=== PATIENT | female | born 1995 | race Caucasian/White ===

== ENCOUNTER 2017-06-19 16:50 | Emergency (ER) | payer MEDICAID, OTHER ==
[~2017-06-19] VITALS: Ht 160 cm; Wt 70.0 kg
[~2017-06-19 16:50] MED LIST: DOCO200C PO; ENOX40P SQ; HYDR-3534 PO; WALKER STANDARD; Z.0.WHEELSTD
[2017-06-19 16:53] VITALS: BP 130/76; PULSE 98; RESP 20; TEMP 98.9; O2SAT 97
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
[2017-06-19] MEDS ORDERED: IBUP-232 PO (19:06)
[2017-06-19] MEDS ORDERED: CYCL10TA PO (19:06)
--- NOTE | 2017-06-19 19:15 | RADRPT ---
EXAM DATE/TIME: 06/19/2017 19:01 [place] COMPARISON: FEMUR RIGHT (AP & LAT/2VWS), January 11, 2015, 9:25. INDICATIONS : Right femur pain, no recent injury. MEDICAL HISTORY : None. SURGICAL HISTORY : ORIF right femur. ENCOUNTER: Initial ACUITY: 2 weeks PAIN SCORE: 7/10 LOCATION: Right distal and proximal femur FINDINGS: 4 views of the right femur demonstrate no fracture or dislocation. There is a retrograde intramedulla ry kris within the femur with 2 distal and a proximal interlocking screw. There are no features to sug gest hardware failure or loosening. The kris traverses an old healed fracture of the mid femoral diaph ysis. There is cortical thickening at the site of prior fracture. No soft tissue abnormality is ident ified. CONCLUSION: No acute right femur abnormality is identified. There is an old healed fracture and a retrograde intr amedullary kris is present. Danis Mendieta MD on June 19, 2017 at 19:12 Board Certified Radiologist. This report was verified electronically.
--- NOTE | 2017-06-19 19:34 | PD ---
Physical Exam Narrative Patient was seen by my assistant paralegal and signed out to me. Data Data Last Documented VS Vital Signs Date Time Temp Pulse Resp B/P (MAP) Pulse Ox O2 Delivery O2 Flow Rate FiO2 06/19/17 16:53 98.9 98 20 130/76 (94) 97 Orders Orders Femur (Ap & Lat/2vws) (06/19/17 18:14) [facility] Supervised Visit with ELKE: Yes Interpretation(s) 1932 PM. X-ray right femur shows no acute abnormality. Healed fracture. Diagnosis Primary Impression: Pain in right leg Additional Impression: Status post type III open fracture of right femur Referrals: [facility] Orthopedist Patient Instructions: General Instructions Departure Forms: Tests/Procedures Additional Instruction: Take medication as needed for pain. Follow-up with an orthopedist in personal physician. Med/Other Pt SpecificInfo: Prescription(s) given Scripts Cyclobenzaprine (Flexeril) 10 Mg Tab 10 MG PO TID for Muscle Spasm, #15 TAB 0 Refills Prov: dAolfo Aponte MD 06/19/17 Ibuprofen (Ibuprofen) 600 Mg Tab 600 MG PO Q8H Y for PAIN, #30 TAB 0 Refills Prov: Adolfo Aponte MD 06/19/17 Disposition: 01 DISCHARGE HOME Condition: Stable Adolfo Aponte MD Jun 19, 2017 19:34
== END 2017-06-19 19:36 | disposition home or self-care (01) ==
LOC: NEPD 16:50
DX: M79.604 Pain in right leg (principal); M54.9 Dorsalgia, unspecified; F90.9 Attention-deficit hyperactivity disorder, unspecified type; F41.9 Anxiety disorder, unspecified; Z72.0 Tobacco use
CPT/HCPCS: 73552; 99283